=== PATIENT | male | born 1940 | race Caucasian/White ===

== ENCOUNTER → 2017-10-01 | Outpatient (CLI) | payer MEDICARE, OTHER | END | disposition home or self-care (01) | LOC: CFH 08:16 | PROVIDERS: ATTEND Nurse Practitioner Family | DX: F17.291 Nicotine dependence, other tobacco product, in remission (principal) | CPT/HCPCS: 93978 ==

== ENCOUNTER → 2018-09-24 | Outpatient (CLI) | payer MEDICARE, OTHER | END | disposition home or self-care (01) | LOC: CFH 06:40 | PROVIDERS: ATTEND Internal Medicine Cardiovascular Disease | DX: I08.2 Rheumatic disorders of both aortic and tricuspid valves (principal); I10 Essential (primary) hypertension; E78.5 Hyperlipidemia, unspecified; E11.9 Type 2 diabetes mellitus without complications; I48.91 Unspecified atrial fibrillation; Z98.890 Other specified postprocedural states | CPT/HCPCS: 78452; 93017; 93306; A9502 ==

== ENCOUNTER → 2020-08-06 | Outpatient (CLI) | payer MEDICARE, OTHER | END | disposition home or self-care (01) | LOC: CVU 06:35 | PROVIDERS: ATTEND Nurse Practitioner Family | DX: I08.3 Combined rheumatic disorders of mitral, aortic and tricuspid valves (principal); I10 Essential (primary) hypertension; I48.92 Unspecified atrial flutter | CPT/HCPCS: 93306 ==

== ENCOUNTER → 2020-09-10 | Outpatient (CLI) | payer MEDICARE, OTHER ==
[~2020-09-10] MED LIST: OMNIPAQUE 350 MG/ML, 150 ML BOTTLE ONE
== END | disposition home or self-care (01) ==
LOC: CFH 14:51
PROVIDERS: ATTEND Internal Medicine Cardiovascular Disease
DX: Z20.828 Contact with and (suspected) exposure to other viral communicable diseases (principal); I48.0 Paroxysmal atrial fibrillation; M43.8X4 Other specified deforming dorsopathies, thoracic region
CPT/HCPCS: 71046; 75572; 82565; 87635; Q9967

== ENCOUNTER 2020-10-04 10:04 | Day surgery (SDC) | payer MEDICARE, OTHER ==
[~2020-10-04] VITALS: Ht 180.3 cm; Wt 89.0 kg
[~2020-10-04 10:04] MED LIST changes: +APIX5TAB PO; +ASCO500C2 PO; +ATOR10TA9 PO; +CHOL10003 PO; +CIDE500T PO; +COLC0.6C3 PO; +COLE1TAB2 PO; +CYAN100072 PO; +DEXT-230 PO; +DICL100G25 TP; +FLUO40CR9 TP; +LOSA100T14 PO; +MAGN400T36 PO; +METF500T17 PO; +METO25TA35 PO; +OMEG1CAP23 PO; +OMEP-110 PO; -OMNIPAQUE 350 MG/ML, 150 ML BOTTLE ONE; +SOTA80TA18 PO; +TAMS-11 PO; +Tumeric PO
[2020-10-04] MEDS ORDERED: SOTA120T26 PO (10:57)
[2020-10-04 11:38] LABS: BASOPHILS % (AUTO) 1 % (0-1); EOSINOPHILS % (AUTO) 1 % (1-7); LYMPHOCYTES % (AUTO) 22 % (22-44); MEAN CORPUSCULAR HEMOGLOBIN 33.6 pg (27.5-34.5); MEAN CORPUSCULAR HGB CONC 33.9 g/dL (33.2-36.2); MEAN PLATELET VOLUME 7.3 fL (7.4-10.4); MONOCYTES % (AUTO) 8 % (2-9); NEUTROPHILS % (AUTO) 68 % (42-75); PLATELET COUNT 272 x10^3/uL (130-400); RED BLOOD COUNT 4.17 x10^6/uL (4.38-5.82); RED CELL DISTRIBUTION WIDTH 12.7 % (9.4-14.8)
[2020-10-04 11:41] LABS: MD NO
[2020-10-04 11:48] LABS: ANION GAP 4 mmol/L (5-15); CALCIUM 9.2 mg/dL (8.5-10.1); CHLORIDE 106 mmol/L (98-107); CREATININE 1.12 mg/dL (0.7-1.3)
[2020-10-04] MEDS ORDERED: PROPOFOL 10 MG/ML, 20ML ONE (11:51)
== END 2020-10-04 13:14 | disposition home or self-care (01) ==
LOC: CACL 10:04
PROVIDERS: ATTEND Internal Medicine Clinical Cardiac Electrophysiology
DX: I48.92 Unspecified atrial flutter (principal); I48.91 Unspecified atrial fibrillation; E11.9 Type 2 diabetes mellitus without complications; I10 Essential (primary) hypertension; E78.5 Hyperlipidemia, unspecified; N40.0 Benign prostatic hyperplasia without lower urinary tract symptoms; Z79.01 Long term (current) use of anticoagulants; Z79.84 Long term (current) use of oral hypoglycemic drugs; Z79.899 Other long term (current) drug therapy
CPT/HCPCS: 36415; 80048; 85025; 92960; J2704

== ENCOUNTER 2020-10-31 09:59 | Day surgery (SDC) | payer MEDICARE, OTHER ==
[~2020-10-31] VITALS: Ht 180.3 cm; Wt 89.8 kg
[~2020-10-31 09:59] MED LIST changes: +PROPOFOL 10 MG/ML, 20ML ONE; +SOTA120T26 PO
[2020-10-31 11:08] VITALS: BP 135/85
[2020-10-31] MEDS ORDERED: SOTA80TA PO (11:08)
[2020-10-31 11:10] LABS: ANION GAP 3 mmol/L (5-15); CALCIUM 8.9 mg/dL (8.5-10.1); CHLORIDE 107 mmol/L (98-107); CREATININE 1.04 mg/dL (0.7-1.3)
== END 2020-10-31 13:11 | disposition home or self-care (01) ==
LOC: CACL 09:59
PROVIDERS: ATTEND Internal Medicine Cardiovascular Disease
DX: I48.92 Unspecified atrial flutter (principal); E11.9 Type 2 diabetes mellitus without complications; E78.5 Hyperlipidemia, unspecified; I10 Essential (primary) hypertension; Z79.01 Long term (current) use of anticoagulants; Z79.899 Other long term (current) drug therapy; Z98.890 Other specified postprocedural states
CPT/HCPCS: 36415; 80048; 92960; J2704

== ENCOUNTER 2020-11-26 08:33 | Outpatient (CLI) | payer MEDICARE, OTHER ==
[~2020-11-26 08:33] MED LIST changes: -PROPOFOL 10 MG/ML, 20ML ONE; +SOTA80TA PO
== END 2020-11-26 23:59 | disposition home or self-care (01) ==
LOC: STAR 08:33
PROVIDERS: ATTEND Anesthesiology
DX: Z20.822 Contact with and (suspected) exposure to COVID-19 (principal)
CPT/HCPCS: 87635

== ENCOUNTER 2020-11-30 08:07 | Observation (INO) | payer MEDICARE, OTHER ==
[~2020-11-30] VITALS: Ht 180.3 cm; Wt 90.8 kg
[~2020-11-30 08:07] MED LIST changes: +LIDOCAINE 1%, 20ML ONE
[2020-11-30 08:20] VITALS: BP 131/99
[2020-11-30] MEDS ORDERED: SODIUM CHLORIDE 0.9% 1,000 ML IV SCH (08:30)
[2020-11-30] MEDS ORDERED: SODIUM CHLORIDE 0.9% 1,000 ML IV ONE (08:30)
[2020-11-30 08:58] LABS: BASOPHILS % (AUTO) 1 % (0-1); EOSINOPHILS % (AUTO) 2 % (1-7); LYMPHOCYTES % (AUTO) 20 % (22-44); MEAN CORPUSCULAR HEMOGLOBIN 33.8 pg (27.5-34.5); MEAN CORPUSCULAR HGB CONC 33.9 g/dL (33.2-36.2); MEAN PLATELET VOLUME 7.2 fL (7.4-10.4); MONOCYTES % (AUTO) 8 % (2-9); NEUTROPHILS % (AUTO) 69 % (42-75); PLATELET COUNT 224 x10^3/uL (130-400); RED BLOOD COUNT 4.39 x10^6/uL (4.38-5.82); RED CELL DISTRIBUTION WIDTH 13.4 % (9.4-14.8)
[2020-11-30] MEDS ORDERED: PROPOFOL 50 ML ONE (09:02)
[2020-11-30] MEDS ORDERED: FENTANYL PF 250 MCG/5ML ONE (09:03)
[2020-11-30] MEDS ORDERED: MIDAZOLAM 1 MG/ML, 2ML ONE (09:03)
[2020-11-30 09:04] LABS: MD NO
[2020-11-30] MEDS ORDERED: SUCCINYLCHOLINE 20 MG/ML, 10ML ONE (09:06)
[2020-11-30 09:07] LABS: ANION GAP 4 mmol/L (5-15); CALCIUM 9.2 mg/dL (8.5-10.1); CHLORIDE 109 mmol/L (98-107); CREATININE 1.06 mg/dL (0.7-1.3)
[2020-11-30] MEDS ORDERED: PROPOFOL 10 MG/ML, 20ML ONE (10:43)
[2020-11-30] MEDS ORDERED: ROCURONIUM 10MG/ML,5ML ONE (10:43)
[2020-11-30] MEDS ORDERED: ONDANSETRON 2MG/ML, 2ML ONE (10:43)
[2020-11-30] MEDS ORDERED: DEXAMETHASONE 4 MG/ML, 5ML ONE (10:44)
[2020-11-30] MEDS ORDERED: HEPARIN 1,000 UNITS/ML, 10ML ONE ×2 (10:44)
[2020-11-30] MEDS ORDERED: ISOPROTERENOL 0.2MG/ML, 5ML ONE (11:27)
[2020-11-30] MEDS ORDERED: DICLOFENAC SODIUM HOMETP PRN (12:30)
[2020-11-30] MEDS ORDERED: FLUOROURACIL TP PRN (12:30)
[2020-11-30] MEDS ORDERED: ACETAMINOPHEN 650 MG/20.3 ML UDC ONE (12:38)
[2020-11-30] MEDS: ACETAMINOPHEN 325 MG TABLET PO PRN (13:00)
[2020-11-30] MEDS ORDERED: APIXABAN 5 MG TABLET ONE (13:02)
[2020-11-30 14:57] VITALS: BP 125/83
[2020-11-30] MEDS: OMEGA-3/FISH OIL CAPSULE PO SCH ×2 (17:38→21:15)
[2020-11-30] MEDS: metFORMIN 500 MG TABLET PO SCH (17:38)
[2020-11-30 20:54] VITALS: BP 112/63
[2020-11-30] MEDS: COLCHICINE 0.6 MG CAPSULE PO SCH (21:00)
[2020-11-30] MEDS ORDERED: APIXABAN 5 MG TABLET PO SCH ×2 (21:00)
[2020-11-30] MEDS ORDERED: metFORMIN 500 MG TABLET PO SCH (21:00)
[2020-11-30] MEDS ORDERED: ATORVASTATIN 10 MG TABLET PO SCH (21:00)
[2020-11-30] MEDS ORDERED: ZOLPIDEM 5MG TABLET PO PRN (21:00)
[2020-11-30] MEDS: SOTALOL 80MG TABLET PO SCH (21:15)
[2020-11-30] MEDS: APIXABAN 5 MG TABLET PO SCH (21:16)
[2020-11-30] MEDS: COLESTIPOL 1 GM TABLET PO SCH (21:31)
[2020-12-01 01:52] VITALS: BP 111/71
[2020-12-01 01:53] VITALS: BP 160/85
[2020-12-01] MEDS: ACETAMINOPHEN 325 MG TABLET PO PRN (05:18)
[2020-12-01] MEDS ORDERED: OMEPRAZOLE 20 MG CAPSULE.DR PO SCH (07:30)
[2020-12-01] MEDS ORDERED: CHOLECALCIFEROL 1,000 UNIT TABLET PO SCH (09:00)
[2020-12-01] MEDS ORDERED: TUMERIC HOMEMEDPO SCH (09:00)
[2020-12-01] MEDS ORDERED: CIDER VINEGAR HOMEMEDPO SCH (09:00)
[2020-12-01] MEDS ORDERED: LOSARTAN 100 MG TAB PO SCH (09:00)
[2020-12-01] MEDS ORDERED: MAGNESIUM OXIDE 400 MG TABLET PO SCH (09:00)
[2020-12-01] MEDS ORDERED: ASCORBIC ACID 500 MG TABLET PO SCH (09:00)
[2020-12-01] MEDS ORDERED: CYANOCOBALAMIN 1,000 MCG TABLET PO SCH (09:00)
[2020-12-01] MEDS ORDERED: TAMSULOSIN 0.4 MG CAP.ER.24H PO SCH (09:00)
[2020-12-01] MEDS ORDERED: ACET325T26 PO (09:04)
[2020-12-01] MEDS ORDERED: COLC0.6C3 PO (09:04)
[2020-12-01] MEDS: APIXABAN 5 MG TABLET PO SCH (09:13)
[2020-12-01] MEDS: SOTALOL 80MG TABLET PO SCH (09:13)
[2020-12-01] MEDS: OMEGA-3/FISH OIL CAPSULE PO SCH (09:13)
[2020-12-01] MEDS: metFORMIN 500 MG TABLET PO SCH (09:14)
[2020-12-01] MEDS: COLCHICINE 0.6 MG CAPSULE PO SCH (09:14)
[2020-12-01 09:33] VITALS: BP 156/83
[2020-12-01] MEDS: COLESTIPOL 1 GM TABLET PO SCH (10:00)
== END 2020-12-01 10:40 | disposition home or self-care (01) ==
LOC: CACL 08:07 → ORIP 12:31 → 5SO 13:49 → DCLOUNGE 12-01 10:35
PROVIDERS: ADMIT Internal Medicine Cardiovascular Disease; ATTEND Internal Medicine Cardiovascular Disease
DX: I48.91 Unspecified atrial fibrillation (principal); I48.4 Atypical atrial flutter; I10 Essential (primary) hypertension; E11.9 Type 2 diabetes mellitus without complications; F10.10 Alcohol abuse, uncomplicated; Z79.899 Other long term (current) drug therapy; Z79.01 Long term (current) use of anticoagulants
CPT/HCPCS: 36415; 80048; 85025; 85347; 93306; 93312; 93325; 93613; 93655; 93656; 93657; 93662; C1730; C1732; C1759; C1766; C1893; C1894; G0378; J0330; J1100; J1644; J2250; J2405; J2704; J3010; J3490

== ENCOUNTER 2020-12-03 13:21 | Emergency (ER) | payer MEDICARE, OTHER ==
[~2020-12-03] VITALS: Ht 180.3 cm; Wt 89.5 kg
[~2020-12-03 13:21] MED LIST changes: +ACET325T26 PO; -LIDOCAINE 1%, 20ML ONE
[2020-12-03 14:27] LABS: MICROSCOPIC INDICATED
[2020-12-03 14:38] LABS: BASOPHILS % (AUTO) 1 % (0-1); EOSINOPHILS % (AUTO) 0 % (1-7); LYMPHOCYTES % (AUTO) 8 % (22-44); MEAN CORPUSCULAR HEMOGLOBIN 33.8 pg (27.5-34.5); MEAN CORPUSCULAR HGB CONC 34.1 g/dL (33.2-36.2); MEAN PLATELET VOLUME 7.3 fL (7.4-10.4); MONOCYTES % (AUTO) 11 % (2-9); NEUTROPHILS % (AUTO) 80 % (42-75); PLATELET COUNT 170 x10^3/uL (130-400); RED BLOOD COUNT 3.69 x10^6/uL (4.38-5.82); RED CELL DISTRIBUTION WIDTH 13.3 % (9.4-14.8)
[2020-12-03 14:39] LABS: MD NO
[2020-12-03 14:48] LABS: ALANINE AMINOTRANSFERASE 65 U/L (12-78); ALBUMIN 3.6 g/dL (3.4-5.0); ANION GAP 5 mmol/L (5-15); CALCIUM 8.9 mg/dL (8.5-10.1); CHLORIDE 106 mmol/L (98-107); CREATININE 1.02 mg/dL (0.7-1.3)
[2020-12-03 14:50] LABS: ALKALINE PHOSPHATASE 92 U/L (45-117); TOTAL PROTEIN 6.9 g/dL (6.4-8.2)
--- NOTE | 2020-12-03 14:57 | NUR ---
Pt had a reid catheter after cardiac ablasion. Pt now complains of paiful urination and increase in frequency but denies have trouble initiating a stream. Pt resting comfortably in bed with at the bedside.
[2020-12-03 16:14] VITALS: BP 132/77
== END 2020-12-03 16:34 | disposition home or self-care (01) ==
LOC: ED 15:54
DX: N30.01 Acute cystitis with hematuria (principal); I48.91 Unspecified atrial fibrillation
CPT/HCPCS: 36415; 80053; 81001; 85025; 87077; 87086; 87186; 99283; 99284